=== PATIENT | male | born 1940 | race Caucasian/White ===

== ENCOUNTER 2017-08-04 15:32 | Outpatient (CLI) | payer OTHER ==
[2015-11-07 11:57] VITALS: BP 125/62
== END 2017-08-04 15:33 ==
LOC: LABRHC 15:32
PROVIDERS: ATTEND Physician Assistant
DX: R31.9 Hematuria, unspecified (principal)
CPT/HCPCS: 87086

== ENCOUNTER 2017-11-30 16:15 | Outpatient (CLI) | payer OTHER ==
[2015-11-07 11:57] VITALS: BP 125/62
== END 2017-11-30 16:16 ==
LOC: LABRHC 16:15
PROVIDERS: ATTEND Physician Assistant
DX: R30.0 Dysuria (principal)
CPT/HCPCS: 87086

== ENCOUNTER 2018-01-31 14:09 | Outpatient (CLI) | payer OTHER ==
[2015-11-07 11:57] VITALS: BP 125/62
== END 2018-01-31 14:10 ==
LOC: LABRHC 14:09
PROVIDERS: ATTEND Family Medicine
DX: N39.0 Urinary tract infection, site not specified (principal)
CPT/HCPCS: 87086

== ENCOUNTER 2018-02-28 15:45 | Outpatient (CLI) | payer OTHER ==
[2015-11-07 11:57] VITALS: BP 125/62
--- NOTE | 2018-02-28 17:38 | Diagnostic Imaging Report ---
SADI GALARZA [facility] [address] [facility].[address] [address] Report Submission Date: February 28, 2018 4:54:55 PM CDT Patient Study Name: SHARON STINSON Date: February 28, 2018 3:58:06 PM CDT Modality Type: DX Gender: M Description: ABDOMEN : 36 Institution: [facility] Physician: SADI GALARZA Examination: Abdomen History: KUB, BACK PAIN (IN AREA OF KIDNEYS) AND UTI SYMPTOMS X2-3 WEEKS, HX OF KIDNEY STONES (Hx) Findings: 2 views obtained of the abdomen. No abnormal dilation of the large or small bowel. Air and stool throughout the large bowel. Calcific density projecting over the region of the left renal fossa. Pelvic phleboliths. Articular degenerative changes and spurring. Impression: No bowel obstruction. Left renal fossa calcifications. Consider CT stone protocol to further evaluate. Electronically signed on February 28, 2018 4:54:55 PM CDT by: Pasquale HUMPHREY
== END 2018-02-28 15:46 ==
LOC: LAB 15:45
PROVIDERS: ATTEND Urology
DX: N39.0 Urinary tract infection, site not specified (principal); R10.9 Unspecified abdominal pain
CPT/HCPCS: 74018; 87086

== ENCOUNTER 2018-04-13 14:45 | Outpatient (CLI) | payer OTHER ==
[2015-11-07 11:57] VITALS: BP 125/62
[2018-04-13 15:04] LABS: BASOPHILS % 0.6 (0.0-1.5); EOSINOPHILS % 2.2 % (0.0-6.8); MEAN CORPUSCULAR HEMOGLOBIN 33.5 pg (28.0-34.0); MEAN CORPUSCULAR VOLUME 101.2 fl (80.0-100.0); MONOCYTES % 4.1 % (0.0-11.0); NEUTROPHILS # 5.2 # k/uL (1.4-7.7)
[2018-04-13 15:36] LABS: eGFR (African) > 60; eGFR (Non-African) > 60
== END 2018-04-13 14:50 ==
LOC: LAB 14:45
PROVIDERS: ATTEND Family Medicine
DX: R53.82 Chronic fatigue, unspecified (principal)
CPT/HCPCS: 36415; 80053; 84443; 85025

== ENCOUNTER 2018-04-20 16:59 | Outpatient (CLI) | payer OTHER ==
[2015-11-07 11:57] VITALS: BP 125/62
== END 2018-04-20 17:00 ==
LOC: LAB 16:59
PROVIDERS: ATTEND Family Medicine
DX: N39.0 Urinary tract infection, site not specified (principal)
CPT/HCPCS: 87086; 87186

== ENCOUNTER 2018-05-14 12:06 | Emergency (ER) | payer OTHER ==
[2018-05-14] MEDS ORDERED: DIPH,PERTUSS(ACELL),TET VAC/PF 0.5 ML DISP.SYRIN IM ONE (12:48)
--- NOTE | 2018-05-14 12:54 | ED Physician Documentation ---
General Adult - HISTORIAN Historian: patient - HPI Stated Complaint: finger laceration Chief Complaint: General Adult Additional Information: Cut finger with kitchen knife just over an hour ago. Useing knofe to open a container while odessa pickles. Unknown last tetanus. On Cipro 500 mg BID for UTI. Three days of Cipro left. No other modifying factors or associated signs. - ROS CONST: no problems - PAST HX Past History: other (BPH, GERD, Gout) Surgeries/Procedures: other (Agustín TKR) Allergies/Adverse Reactions: Allergies Allergy/AdvReac Type Severity Reaction Status Date / Time Penicillins Allergy Verified 05/14/18 12:57 Home Medications: Ambulatory Orders Medication Instructions Recorded Alfuzosin HCl [Alfuzosin Hcl Er] 10 mg PO DAILY u2 12/03/14 Finasteride 5 mg PO DAILY u2 12/03/14 Budesonide 0.5 mg IH BID 30 Days 11/10/15 - SOCIAL HX Smoking History: non-smoker - FAMILY HX Family History: No - VITAL SIGNS Vital Signs: Vital Signs Temp Pulse Resp BP Pulse Ox 125/62 11/07/15 11:54 - REVIEWED ASSESSMENTS Nursing Assessment Reviewed: Yes Vitals Reviewed: Yes Procedures Wound Location: upper extremity (L 2nd finger) Wound Length: 2 cm Wound's Depth, Shape: linear (sub q) Wound Explored: clean Betadine Prep?: No (chlorhexadine) Anesthesia: 0.5% Sensorcaine Volume of Anesthetic: 1.25 Wound Repaired With: sutures Suture Size/Type: 4:0 Number of Sutures: 2 Layer Closure?: No Sterile Dressing Applied?: Yes Splint Applied?: Yes ED Results Lab/Radiology - Orders Orders: ED Orders Category Date Time Status Cleanse with NS and Chlorhexid 1T Care 05/14/18 12:48 Ordered Finger Splint 1T Care 05/14/18 12:48 Ordered Diph,Pertuss(Acell),Tet Vac/Pf [Adacel] Med 05/14/18 12:48 Once 0.5 ml IM .ONCE ONE General Adult Physical Exam - PHYSICAL EXAM GENERAL APPEARANCE: mild distress (upset that day was interrupted) EENT: eye inspection normal, ENT inspection normal NECK: supple RESPIRATORY: no resp distress BACK: other (movements w/o pain) SKIN: warm/dry, normal color, other (2 cm lac over left 2nd PIP, lateral dorsal surface. sub q. Full active ROM of PIP, finger) EXTREMITIES: normal range of motion (antalgi gait, with stooped posture) NEURO: CN's nml as tested, motor nml, sensation nml, cognition normal Discharge Clincal Impression: Finger laceration Qualifiers: Encounter type: initial encounter Finger: index finger Damage to nail status: without damage Foreign body presence: without foreign body Laterality: left Qualified Code(s): S61.211A - Laceration without foreign body of left index finger without damage to nail, initial encounter Referrals: Maribeth Leyva MD [Primary Care Provider] - 2 Days Additional Instructions: Keep the left hand elevated to the level of your waist or higher to minimize bleeding and discomfort. Return to the ER immediately if the finger seems to be infected. Ask Dr. Leyva to remove the stitches in 7 days. Condition: Good Disposition: 01 HOME, SELF-CARE Decision to Admit: NO Decision Time: 13:27
[2018-05-14 12:57] VITALS: BP 155/72
[2018-05-14] MEDS ORDERED: BUPIVACAINE HCL/PF 5 MG/ML 10ML VIAL IV ONE (13:01)
[2018-05-14] MEDS ORDERED: BUPIVACAINE HCL/PF 5 MG/ML 10ML VIAL IJ ONE (13:02)
== END 2018-05-14 13:32 | disposition home or self-care (01) ==
LOC: ED 12:06
DX: S61.211A Laceration without foreign body of left index finger without damage to nail, initial encounter (principal); W26.8XXA Contact with other sharp object(s), not elsewhere classified, initial encounter; Y92.010 Kitchen of single-family (private) house as the place of occurrence of the external cause; Y93.G3 Activity, cooking and baking; Y99.9 Unspecified external cause status
CPT/HCPCS: 90715; J3490; 12001; 90471; 96372

== ENCOUNTER 2018-05-31 11:41 | Outpatient (CLI) | payer OTHER ==
[2018-05-31 17:13] LABS: APPEARANCE,URINE CLEAR (CLEAR); COLOR,URINE YELLOW (YELLOW); OCCULT BLOOD,URINE 1+ (NEGATIVE); PH URINE 7.5 (5.0 - 8.0)
== END 2018-05-31 11:42 ==
LOC: LAB 11:41
PROVIDERS: ATTEND Urology
DX: N39.0 Urinary tract infection, site not specified (principal)
CPT/HCPCS: 81002; 87086

== ENCOUNTER 2018-07-14 22:53 | Emergency (ER) | payer OTHER ==
--- NOTE | 2018-07-14 23:15 | ED Physician Documentation ---
Male Genitourinary Problems - HISTORIAN Historian: patient - HPI Stated Complaint: blood in urine Chief Complaint: Male Genitourinary Problems Additional Information: Patient presents to ED with a 1-2 hour history of hematuria, pain/burning with urination, and incontinence. Patient states he is under the care of urology, Dr. Patel at [facility] for kidney stones and frequent urinary tract infections. His last urinary tract infection was about a month ago. He denies any abdominal pain, flank pain or fever. Up until about 2 hours ago he was feeling fine. Onset: hours (1-2 hours) Duration: continues in ED Severity: moderate - Associated Symptoms Problems Urinating: blood in urine, frequent urination, burning w/ urination, urgency w/ urination, pain w/ urination, other (incontenence ) Penile Discharge Descripiton: denies: watery, thin, thick, curd, other Testicular Pain: denies: none, R testicle, L testicle, other Testicular Swelling: denies: none, R testicle, L testicle, other Penile Pain: No Penile Swelling: No Flank Pain: none Abdominal Pain: none - Sexual History Sexual History: non-contributory - ROS CONST: denies: fever, chills GI/: denies: nausea, vomiting, abdominal pain MS/SKIN/LYMPH: none CVS/RESP: none EYES/ENT: none NEURO/PSYCH: denies: dizziness - PAST HX Past History: bladder infection, kidney stones Cardiac Disease: none Surgeries/Procedures: none Allergies/Adverse Reactions: Allergies Allergy/AdvReac Type Severity Reaction Status Date / Time Penicillins Allergy Verified 05/14/18 12:57 Penicillins Allergy Uncoded 05/28/12 23:58 Home Medications: Ambulatory Orders Medication Instructions Recorded Alfuzosin HCl [Alfuzosin Hcl Er] 10 mg PO DAILY u2 12/03/14 Finasteride 5 mg PO DAILY u2 12/03/14 Budesonide 0.5 mg IH BID 30 Days 11/10/15 Ciprofloxacin HCl [Cipro] 500 mg PO BID 10 Days #20 tablet 07/14/18 - SOCIAL HX Smoking History: non-smoker Alcohol Use: none Drug Use: none - FAMILY HX Family History: none - VITAL SIGNS Vital Signs: Vital Signs Temp Pulse Resp BP Pulse Ox 98.2 F 55 L 12 155/77 98 07/14/18 23:09 07/14/18 23:09 07/14/18 23:09 07/14/18 23:09 07/14/18 23:09 - REVIEWED ASSESSMENTS Nursing Assessment Reviewed: Yes Vitals Reviewed: Yes ED Results Lab/Radiology - Lab Results Lab Results: UA shows 3+blood, Leukocytes 1+ - Orders Orders: ED Orders Category Date Time Status URINALYSIS Routine Lab 07/14/18 Ordered URINE CULTURE Stat Lab 07/14/18 23:14 Ordered LIDOCAINE 2% PF 5ml Disp Syrin [Xylocaine] Med 07/14/18 23:25 Once 2.5 mg IV NOW ONE cefTRIAXone SODIUM [Rocephin] Med 07/14/18 23:24 Once 1 gm IM NOW ONE Male Genitourinary Problems - EXAM General Appearance: no acute distress, alert Genitals: nml inspection EENT: eye inspection normal Neck: nml inspection Respiratory: no resp distress, breath sounds normal CVS: reg rate & rhythm, heart sounds normal Back: non-tender. No: CVA tenderness Extremities: no pedal edema Neuro/Psych: oriented X3 Skin: warm/dry Discharge Clincal Impression: Acute cystitis with hematuria Prescriptions: Ciprofloxacin HCl [Cipro] 500 mg PO BID 10 Days #20 tablet Referrals: Maribeth Leyva MD [Primary Care Provider] - 2 Days Condition: Stable Disposition: 01 HOME, SELF-CARE Decision to Admit: NO Date of Decison to Admit: 07/14/18 Decision Time: 23:42
[2018-07-14] MEDS ORDERED: cefTRIAXone SODIUM 1 GM VIAL IM ONE (23:24)
[2018-07-14] MEDS: LIDOCAINE 2% PF 5ml Disp Syrin IV ONE ×2 (23:41→23:59)
[2018-07-14] MEDS ORDERED: Lidocaine 2% 20ml Vial IP ONE (23:44)
[2018-07-14 23:51] VITALS: BP 109/60
[2018-07-15 07:55] LABS: APPEARANCE,URINE CLOUDY (CLEAR); COLOR,URINE YELLOW (YELLOW); OCCULT BLOOD,URINE 3+ (NEGATIVE); UROBILINOGEN URINE 0.2 Eu (0.2-1.0)
== END 2018-07-14 23:50 | disposition home or self-care (01) ==
LOC: ED 22:53
DX: N30.01 Acute cystitis with hematuria (principal)
CPT/HCPCS: 81002; 87086; J0696; 96372; J2001

== ENCOUNTER 2018-08-20 09:31 | Outpatient (CLI) | payer OTHER | END 2018-08-20 09:33 | LOC: LAB 09:31 | PROVIDERS: ATTEND Physician Assistant | DX: I48.91 Unspecified atrial fibrillation (principal) | CPT/HCPCS: 36415; 85610 ==

== ENCOUNTER 2018-08-27 12:00 | Outpatient (CLI) | payer OTHER | END 2018-08-27 12:02 | LOC: LAB 12:00 | PROVIDERS: ATTEND Physician Assistant | DX: I48.91 Unspecified atrial fibrillation (principal) | CPT/HCPCS: 36415; 85610 ==

== ENCOUNTER 2018-09-03 11:17 | Outpatient (CLI) | payer OTHER | END 2018-09-03 11:19 | LOC: LAB 11:17 | PROVIDERS: ATTEND Physician Assistant | DX: I48.91 Unspecified atrial fibrillation (principal) | CPT/HCPCS: 36415; 85610 ==

== ENCOUNTER 2018-09-10 12:26 | Outpatient (CLI) | payer OTHER | END 2018-09-10 12:27 | LOC: LAB 12:26 | PROVIDERS: ATTEND Physician Assistant | DX: I48.91 Unspecified atrial fibrillation (principal) | CPT/HCPCS: 36415; 85610 ==

== ENCOUNTER 2018-10-29 11:00 | Outpatient (CLI) | payer OTHER | END 2018-10-29 11:03 | LOC: LAB 11:00 | PROVIDERS: ATTEND Physician Assistant | DX: I48.91 Unspecified atrial fibrillation (principal) | CPT/HCPCS: 36415; 85610 ==

== ENCOUNTER 2018-12-20 09:32 | Outpatient (CLI) | payer OTHER | END 2018-12-20 09:33 | LOC: LAB 09:32 | PROVIDERS: ATTEND Family Medicine | DX: I48.91 Unspecified atrial fibrillation (principal) | CPT/HCPCS: 36415; 85610 ==

== ENCOUNTER 2019-01-08 10:32 | Outpatient (CLI) | payer OTHER | END 2019-01-08 10:37 | disposition home or self-care (01) | LOC: LAB 10:32 | PROVIDERS: ATTEND Family Medicine | DX: I48.91 Unspecified atrial fibrillation (principal) | CPT/HCPCS: 36415; 85610 ==

== ENCOUNTER 2019-01-14 11:22 | Outpatient (CLI) | payer OTHER | END 2019-01-14 11:23 | LOC: LAB 11:22 | PROVIDERS: ATTEND Family Medicine | DX: I48.91 Unspecified atrial fibrillation (principal) | CPT/HCPCS: 36415; 85610 ==

== ENCOUNTER 2019-02-26 14:43 | Outpatient (CLI) | payer OTHER | END 2019-02-26 14:45 | LOC: LAB 14:43 | PROVIDERS: ATTEND Family Medicine | DX: I48.91 Unspecified atrial fibrillation (principal) | CPT/HCPCS: 36415; 85610 ==

== ENCOUNTER 2019-03-11 11:31 | Outpatient (CLI) | payer OTHER | END 2019-03-11 11:36 | disposition home or self-care (01) | LOC: LAB 11:31 | PROVIDERS: ATTEND Family Medicine | DX: I48.91 Unspecified atrial fibrillation (principal); Z79.01 Long term (current) use of anticoagulants; Z51.81 Encounter for therapeutic drug level monitoring | CPT/HCPCS: 36415; 85610 ==

== ENCOUNTER 2019-03-25 11:45 | Outpatient (CLI) | payer OTHER | END 2019-03-25 11:47 | LOC: LAB 11:45 | PROVIDERS: ATTEND Family Medicine | DX: I48.91 Unspecified atrial fibrillation (principal); Z79.01 Long term (current) use of anticoagulants; Z51.81 Encounter for therapeutic drug level monitoring | CPT/HCPCS: 36415; 85610 ==

== ENCOUNTER 2019-04-01 16:56 | Outpatient (CLI) | payer OTHER | END 2019-04-01 16:58 | LOC: LABRHC 16:56 | PROVIDERS: ATTEND Family Medicine | DX: R31.9 Hematuria, unspecified (principal) | CPT/HCPCS: 87086 ==

== ENCOUNTER → 2019-05-27 | Emergency (ER) | payer OTHER ==
[~2019-05-27] MED LIST: GLUCAGON,HUMAN RECOMBINANT 1 MG/ML VIAL IVP ONE
[2019-05-27 21:03] VITALS: BP 139/82
--- NOTE | 2019-05-27 22:17 | ED Physician Documentation ---
General Adult - HISTORIAN Historian: patient - HPI Stated Complaint: FB in throat Chief Complaint: General Adult Further Comments: yes (78 year old male patient presents with sensation of FB in "vocal cords". Patient reports "spitting up" after dinner. Had a casserole with ham pieces. On arrival to ER, was spitting into tray.) - ROS CONST: recent illness (left ear bleeding - seeing ENT tomorrow. ) EYES/ENT: none CVS/RESP: none GI/: none MS/SKIN/LYMPH: none NEURO/PSYCH: denies: headache - PAST HX Past History: AMI, other (BPH) Surgeries/Procedures: other (PPM) Allergies/Adverse Reactions: Allergies Allergy/AdvReac Type Severity Reaction Status Date / Time Penicillins Allergy Verified 05/27/19 21:03 Home Medications: Ambulatory Orders Medication Instructions Recorded Alfuzosin HCl [Alfuzosin Hcl Er] 10 mg PO DAILY u2 12/03/14 Finasteride 5 mg PO DAILY u2 12/03/14 Budesonide 0.5 mg IH BID 30 Days 11/10/15 - SOCIAL HX Smoking History: non-smoker - FAMILY HX Family History: No - VITAL SIGNS Vital Signs: Vital Signs Temp Pulse Resp BP Pulse Ox 97.8 F 71 20 139/82 96 05/27/19 20:42 05/27/19 20:42 05/27/19 20:42 05/27/19 20:42 05/27/19 20:42 - REVIEWED ASSESSMENTS Nursing Assessment Reviewed: Yes Vitals Reviewed: Yes Progress - Progress Progress: FB sensation resolved while in ER. Patient did not require glucagon injection. Able to swallow his saliva and po's. ED Results Lab/Radiology - Orders Orders: ED Orders Category Date Time Status CHEST 2VIEW [RAD] Stat Exams 05/27/19 21:02 Ordered Glucagon,Human Recombinant [Glucagen] Med 05/27/19 20:59 Discontinued 1 mg IVP NOW ONE General Adult Physical Exam - PHYSICAL EXAM GENERAL APPEARANCE: [id number] N EENT: eye inspection normal, SHAKIRA RESPIRATORY: no resp distress, chest non-tender, breath sounds normal CVS: reg rate & rhythm, heart sounds normal, equal pulses, no murmur, no gallop, PMI nml, no JVD, no friction rub, 24 ABDOMEN: soft, no organomegaly, normal bowel sounds, no abdominal bruit, no distension SKIN: normal color, warm/dry, NR, INT, PAL, DR EXTREMITIES: non-tender, normal range of motion, no evidence of injury, no edema, J, [employer] NEURO: oriented X3, CN's nml as tested, motor nml, sensation nml, mood/affect nml Discharge Clincal Impression: foreign body esophagus passed Referrals: Maribeth Leyva MD [Primary Care Provider] - 2 Days Condition: Stable Disposition: 01 HOME, SELF-CARE Decision to Admit: NO Decision Time: 22:17
--- NOTE | 2019-05-29 13:18 | Diagnostic Imaging Report ---
PETERSON ADAN ([employer]) - ER [facility] [address] [address] Report Submission Date: May 27, 2019 9:21:59 PM CDT Patient Study Name: SHARON STINSON Date: May 27, 2019 9:04:50 PM CDT Modality Type: DX Gender: M Description: CHEST 2VIEW : 36 Institution: [facility] Physician: PETERSON ADAN ([employer]) - ER Chest two views History: Cough and choking sensation Findings: The lungs are moderately hyperinflated. The cardiac silhouette is mildly enlarged. A triple lead transvenous pacemaker is present. There is no infiltrate, pleural effusion, or pneumothorax. Impression: COPD, cardiomegaly, and pacemaker. Electronically signed on May 27, 2019 9:21:59 PM CDT by: Alfonso HUMPHREY
== END | disposition home or self-care (01) ==
LOC: ED 20:41
DX: T18.108A Unspecified foreign body in esophagus causing other injury, initial encounter (principal)
CPT/HCPCS: 71046; 96374; 99282; 99284

== ENCOUNTER 2019-05-30 09:27 | Outpatient (CLI) | payer OTHER ==
[2019-05-27 21:03] VITALS: BP 139/82
[2019-05-30 09:32] LABS: BASOPHILS % 0.4 % (0.0-1.5); NEUTROPHILS # 4.4 # k/uL (1.4-7.7)
[2019-05-30 09:41] LABS: eGFR (Non-African) > 60
== END 2019-05-30 09:30 ==
LOC: LABRHC 09:27
PROVIDERS: ATTEND Nurse Practitioner Family
DX: N39.0 Urinary tract infection, site not specified (principal); R31.9 Hematuria, unspecified; R53.83 Other fatigue
CPT/HCPCS: 80053; 85025; 87086

== ENCOUNTER 2019-07-04 14:00 | Outpatient (CLI) | payer OTHER ==
[2019-05-27 21:03] VITALS: BP 139/82
[2019-07-16 09:29] LABS: BASOPHILS % 0.4 % (0.0-1.5); NEUTROPHILS # 6.5 # k/uL (1.4-7.7); eGFR (Non-African) > 60
== END 2019-07-04 14:15 ==
LOC: LAB 14:00
PROVIDERS: ATTEND Family Medicine
DX: R63.4 Abnormal weight loss (principal)
CPT/HCPCS: 36415; 71020; 71046; 80053; 84153; 84443; 85025

== ENCOUNTER 2019-07-08 08:43 | Outpatient (CLI) | payer OTHER ==
[2019-05-27 21:03] VITALS: BP 139/82
--- NOTE | 2019-07-30 16:00 | Diagnostic Imaging Report ---
RICHY VEGA [facility] [address] [facility] [address] [place] [address]. [id number] Report Submission Date: Jul 08, 2019 9:49:14 AM CDT Patient Study Name: SHARON STINSON Date: Jul 08, 2019 9:09:48 AM CDT Modality Type: CT\SR Gender: M Description: CT ABD/PELV W/CONTRAST : 36 Institution: [facility] Physician: RICHY VEGA Exam: CT abdomen and pelvis with contrast. History: Unexplained weight loss. Axial images through the abdomen and pelvis after IV infusion of 90 cc Omnipaque is submitted along with sagittal and coronal reformatted images. The examination is compared to study dated May 02, 2019. The visualized lower lung seo are clear. No free intraperitoneal air is identified. The gallbladder is distended without stones. The liver, spleen and pancreas are normal attenuation and enhancement. The adrenal glands are normal configuration. The abdominal aorta is of normal caliber and associated with atherosclerotic plaque. No periaortic lymphadenopathy is identified. Persistent atrophy of the left kidney is again noted. The left kidney is also associated with numerous calcifications with a small calcification now identified in the renal pelvis near the ureteropelvic junction. Small cyst is again associated with the left kidney. The right kidney is unchanged in attenuation and enhancement. No hydronephrosis is identified. The urinary bladder is distended. The small bowel is of normal caliber. Air and stool seen throughout the large intestine. No inflammatory changes in the mesentery or ascites is identified. Degenerate changes in the lumbar spine are noted. Impression: Persistent atrophy of the left kidney. Numerous calcifications are associated with the left kidney with a small stone noted near the ureteropelvic junction. Small left renal cyst is unchanged. No right-sided hydronephrosis. Nonspecific bowel gas pattern. No inflammatory changes in the mesentery or ascites is identified. Electronically signed on Jul 08, 2019 9:49:14 AM CDT by: Ian HUMPHREY
== END 2019-07-08 09:05 ==
LOC: RAD 08:43
PROVIDERS: ATTEND Family Medicine
DX: R63.4 Abnormal weight loss (principal)
CPT/HCPCS: 74177; Q9967

== ENCOUNTER 2019-07-11 13:06 | Outpatient (CLI) | payer OTHER ==
[2019-05-27 21:03] VITALS: BP 139/82
== END 2019-07-11 13:13 | disposition home or self-care (01) ==
LOC: LAB 13:06
PROVIDERS: ATTEND Family Medicine
DX: I48.91 Unspecified atrial fibrillation (principal)
CPT/HCPCS: 36415; 85610

== ENCOUNTER 2019-07-29 15:45 | Outpatient (CLI) | payer OTHER ==
[2019-05-27 21:03] VITALS: BP 139/82
== END 2019-07-29 15:50 ==
LOC: LAB 15:45
PROVIDERS: ATTEND Family Medicine
DX: I48.91 Unspecified atrial fibrillation (principal)
CPT/HCPCS: 36415; 85610

== ENCOUNTER 2019-09-08 19:44 | Emergency (ER) | payer OTHER ==
--- NOTE | 2019-09-08 19:57 | ED Physician Documentation ---
Hip Injury/Pain - HISTORIAN Historian: patient - HPI Chief Complaint: Hip Injury Additional Information: 79 year old male presents with c/o right hip pain s/p fall this morning. Patient states that he has Parkinsons and lost his balance and fell backwards. He states that he has a hard knot on his right lower buttock; feels normal but will get xray; uses a walker for ambulation. Walking at baseline he states. Onset: hours Where: home Severity: mild Duration: intermittent pain Context: fall, lost balance Symptoms Prior to Fall: none Other Injuries: none Subsequent Symptoms: denies: motor loss - ROS CONST: no problems RESP: denies: shortness of breath GI/: none EYES/ENT: none MS/SKIN/LYMPH: denies: neck pain NEURO/PSYCH: denies: confusion - PAST HX Cardiac Disease: other (HTN) Other History: other (Parkinsons, gout, ) Immunizations: UTD Allergies/Adverse Reactions: Allergies Allergy/AdvReac Type Severity Reaction Status Date / Time Penicillins Allergy Verified 09/08/19 20:36 Home Medications: Ambulatory Orders Medication Instructions Recorded Allopurinol [Zyloprim] 300 mg PO DAILY 05/28/19 Aspirin [Aspir-Low] 81 mg PO DAILY 05/28/19 Finasteride [Proscar] 5 mg PO AM 05/28/19 Omeprazole 20 mg PO DAILY 05/28/19 Carbidopa/Levodopa [Carbidopa-Levo 1 tab PO QID 09/08/19 25-100 mg Odt] Docusate Sodium [Stool Softener] 250 mg PO DAILY 09/08/19 Gabapentin 400 mg PO DAILY 09/08/19 Gabapentin 400 mg PO TID 09/08/19 Ondansetron [Zuplenz] 8 mg PO TID 09/08/19 Sertraline HCl 50 mg PO DAILY 09/08/19 Tramadol HCl [Ultram] 50 mg PO TID 09/08/19 Warfarin Sodium 5 mg PO HS 09/08/19 - SOCIAL HX Smoking History: non-smoker Alcohol Use: none Drug Use: marijuana - FAMILY HX Family History: No - VITAL SIGNS Vital Signs: Vital Signs Temp Pulse Resp BP Pulse Ox 97.2 F L 82 16 160/92 96 09/08/19 19:45 09/08/19 19:45 09/08/19 19:45 09/08/19 19:45 09/08/19 19:45 - REVIEWED ASSESSMENTS Nursing Assessment Reviewed: Yes Vitals Reviewed: Yes ED Results Lab/Radiology - Radiology Radiology Impressions: Examination: Plain film right hip History: Hip discomfort Comparison exams: None provided Findings: 2 views of the right hip demonstrates degenerative spurring. No fracture no dislocation. No soft tissue abnormality. Pubic symphysis degenerative changes. Impression: Degenerative changes. No acute appearing osseous abnormality. Electronically signed on Sep 08, 2019 8:21:21 PM ELIGIBILITY EXAMINER by: Pasquale Kaminski Examination: Plain film pelvis History: Fall Comparison exams: None provided Findings: Single view of the pelvis demonstrates degenerative spurring. No fracture. No dislocation. Superior and inferior pubic rami and iliac wings are without abnormality. Pubic symphysis degenerative changes. Lumbar spine degenerative spurring. Impression: Degenerative changes. No acute appearing osseous process. Electronically signed on Sep 08, 2019 8:21:23 PM ELIGIBILITY EXAMINER by: Pasquale Kaminski - Orders Orders: ED Orders Category Date Time Status PELVIS AP 1 OR 2 VIEWS [RAD] Stat Exams 09/08/19 Completed RT HIP 2VIEW COMPLETE [RAD] Stat Exams 09/08/19 Completed Hip Injury/Pain Physical Exam - EXAM General Appearance: no acute distress, alert Extremities: nml ROM, no pedal edema, hip tenderness EENT: eye inspection normal, ENT inspection normal, pharynx normal, no signs of dehydration, SHAKIRA Neck: nml inspection Respiratory: breath sounds nml CVS: heart sounds normal Abdomen: nml bowel sounds Back: non-tender, painless ROM Skin: warm/dry, normal color Neuro/Psych: oriented x3, neuro grossly intact, mood/affect nml Discharge Clincal Impression: Fall from standing, Contusion of hip, right Referrals: Maribeth Leyav MD [Primary Care Provider] - 2 Days Additional Instructions: No Fractures Continue to use Walker May use heating pad as needed May use Bill [employer] Follow up with PCP next week for re-evaluation Condition: Good Disposition: 01 HOME, SELF-CARE Decision to Admit: NO Decision Time: 20:50
--- NOTE | 2019-09-08 20:25 | Diagnostic Imaging Report ---
PATIENT MR#: [id number] PATIENT PATIENT NAME: SHARON STINSON DATE OF : 1940 REFERRING PHYSICIAN: Celina Villalobos EXAM DATE: 09/08/2019 ACCESSION NUMBER: [id number] EXAM DESCRIPTION: PELVIS AP 1 OR 2 VIEWS Examination: Plain film pelvis History: Fall Comparison exams: None provided Findings: Single view of the pelvis demonstrates degenerative spurring. No fracture. No dislocation. Superior and inferior pubic rami and iliac wings are without abnormality. Pubic symphysis degenerative changes. Kindra mbar spine degenerative spurring. Impression: Degenerative changes. No acute appearing osseous process. Read by: Dr. Pasquale Kaminski Transcribed by: Transcribed Date: Electronically signed by: Dr. Pasquale Kaminski Date signed: 09/08/2019 8:24:49 PM
--- NOTE | 2019-09-08 20:25 | Diagnostic Imaging Report ---
PATIENT MR#: [id number] PATIENT PATIENT NAME: SHARON STINSON DATE OF : 1940 REFERRING PHYSICIAN: Celina Villalobos EXAM DATE: 09/08/2019 ACCESSION NUMBER: [id number] EXAM DESCRIPTION: RT HIP 2VIEW COMPLETE Examination: Plain film right hip History: Hip discomfort Comparison exams: None provided Findings: 2 views of the right hip demonstrates degenerative spurring. No fracture no dislocation. No soft tissue abnormality. Pubic symphysis degenerative changes. Impression: Degenerative changes. No acute appearing osseous abnormality. Read by: Dr. Pasquale Kaminski Transcribed by: Transcribed Date: Electronically signed by: Dr. Pasquale Kaminski Date signed: 09/08/2019 8:24:49 PM
[2019-09-08 21:01] VITALS: BP 151/8
== END 2019-09-08 20:50 | disposition home or self-care (01) ==
LOC: ED 19:44
DX: S70.01XA Contusion of right hip, initial encounter (principal); W19.XXXA Unspecified fall, initial encounter; Y92.009 Unspecified place in unspecified non-institutional (private) residence as the place of occurrence of the external cause
CPT/HCPCS: 72170; 73502